=== PATIENT | female | born 1975 | race Two or more races ===

== ENCOUNTER 2017-09-25 03:39 | Emergency (ER) | payer OTHER ==
[~2017-09-25] VITALS: Ht 160 cm; Wt 68.0 kg
[2017-09-25 04:32] LABS: Urine Pregnacy Test Negative (Negative)
[2017-09-25 04:33] LABS: Urine Bacteria FEW /hpf (None Seen); Urine Blood Negative /uL (Negative); Urine Specific Gravity 1.012 (1.001-1.035); Urine WBC 2 /hpf (0 - 5)
[2017-09-25 05:13] LABS: Amphetamine Screen, Urine NEGATIVE (NEGATIVE); Barbiturate Scree,Urine NEGATIVE (NEGATIVE); Benzodiazephine Screen, Urine NEGATIVE (NEGATIVE); Cannabinoid Screen, Urine NEGATIVE (NEGATIVE); Cocaine Screen, Urine NEGATIVE (NEGATIVE); Opiate Scree,Urine NEGATIVE (NEGATIVE); Phencyclidine Screen, Urine NEGATIVE (NEGATIVE)
[2017-09-25] MEDS ORDERED: HALOPERIDOL LACTATE 5 MG/ML INJ VIAL IM ONE (05:15)
[2017-09-25] MEDS ORDERED: diphenhdrAMINE HCL 50 MG/1 ML VL IV ONE (05:15)
[2017-09-25] MEDS ORDERED: LORazepam 2MG/ML-1ML VIAL IM ONE (05:15)
[2017-09-25] MEDS ORDERED: SODIUM CHLORIDE 0.9% 500 ML IV ONE (06:45)
[2017-09-25 08:02] LABS: Albumin 3.6 g/dL (3.4-5.0); BUN/Creatinine Ratio 6.7; Calcium 7.9 mg/dL (8.5-10.1)
[2017-09-25 08:05] LABS: Bilirubin, Total 0.2 mg/dL (0.2-1.0); Total Protein 7.4 g/dL (6.4-8.2)
[2017-09-25 08:18] LABS: Basophils # (auto) 0.1 uL; Eosinophils # (auto) 0 uL; Lymphocytes # (auto) 1.6 uL; Monocytes # (auto) 0.2 uL; Monocytes % (auto) 6.6 % (0.0-12.0); Neutrophils # (auto) 1.4 uL
[2017-09-25 08:20] LABS: Basophils % (auto) 1.8 % (0.0-2.0); Eosinophils % (auto) 0.9 % (0.0-7.0); Hematocrit 29.5 % (36.0-46.0); Hemoglobin 8.8 g/dL (12.2-16.2); Lymphocytes % (auto) 47.6 % (10.0-50.0); Mean Corpuscular Hemoglobin 18.1 pg (28.0-32.0); Mean Corpuscular Hgb Conc. 29.7 g/dL (32.0-36.0); Mean Corpuscular Volume 60.8 fL (80.0-100.0); Neutrophils % (auto) 43.1 % (37.0-80.0); Nucleated Red Blood Cells % 0.1 %; Platelet Count (auto) 497 10^3/uL (140-450); Red Blood Cells 4.85 10^6/uL (4.0-5.20); Salicylate 1.7 mg/dL (2.8-20.0); White Blood Cell 3.3 10^3/uL (4.4-10.8)
[2017-09-25 08:21] LABS: Acetaminophen < 2.0 ug/mL (10-30)
[2017-09-25] MEDS ORDERED: CIPROFLOXACIN HCL 500 MG TAB PO ONE (10:45)
[2017-09-25 11:05] VITALS: BP 106/62
[2017-09-25] MEDS ORDERED: clonazePAM 0.5 MG TAB PO ONE (14:45)
== END 2017-09-25 14:53 | disposition home or self-care (01) ==
LOC: ER 03:46
DX: F41.9 Anxiety disorder, unspecified (principal); F32.9 Major depressive disorder, single episode, unspecified; R41.82 Altered mental status, unspecified; F10.129 Alcohol abuse with intoxication, unspecified; Y90.7 Blood alcohol level of 200-239 mg/100 ml
CPT/HCPCS: 36415; 80053; 80307; 80320; 80329; 81001; 81025; 85025; 96361; 96372; 96374; 99284; J1200; J1630; J2060; J7030; 93005